=== PATIENT | male | born 1980 | race Caucasian/White ===

== ENCOUNTER → 2020-03-19 | Outpatient (CLI) | payer OTHER ==
[~2020-03-19] MED LIST: ANTIVERT25 MG PO; COVID-19 VACC, MRNA(MODERNA)/PF 100 MCG/0.5 ML VIAL IM ONE
== END ==
LOC: VACCPMC 07:30
DX: Z23 Encounter for immunization (principal); Z20.822 Contact with and (suspected) exposure to COVID-19

== ENCOUNTER → 2020-04-21 | Outpatient (CLI) | payer OTHER | END | DRG 951 | LOC: VACCPMC 10:46 | DX: Z23 Encounter for immunization (principal); Z20.822 Contact with and (suspected) exposure to COVID-19 | CPT/HCPCS: 0012A; 91301 ==